=== PATIENT | female | born 1980 | race Caucasian/White ===

== ENCOUNTER → 2022-07-08 12:10 | Outpatient (CLI) | payer OTHER, SELFPAY ==
--- NOTE | ~2022-07-08 | MM_ITS ---
EXAMINATION: MM screening maral BI w nicolas HISTORY: Screening TECHNIQUE: Craniocaudal and mediolateral oblique 3-D tomosynthesis images were obtained and synthetic 2-D images were generated. CAD analysis was submitted and interpreted. COMPARISON: No prior mammogram is available for comparison at this institution. BREAST PARENCHYMAL COMPOSITION: The breasts are heterogeneously dense, which may obscure small masses FINDINGS: There are focal asymmetries in the upper outer quadrant of the right breast. No suspicious masses, calcifications or architectural distortion in the left breast to suggest malignancy. IMPRESSION: 1. Right breast asymmetries, upper outer quadrant. 2. Additional mammographic views and possible breast ultrasound are recommended. BI-RADS Category 0: Incomplete: Needs additional imaging evaluation. Reviewed, dictated and finalized at location A. IMPRESSION: 1. Right breast asymmetries, upper outer quadrant. 2. Additional mammographic views and possible breast ultrasound are recommended . BI-RADS Category 0: Incomplete: Needs additional imaging evaluation.
== END ==
PROVIDERS: PCP Emergency Medicine; Visit Provider Obstetrics & Gynecology Gynecology
DX: Z12.31 Encounter for screening mammogram for malignant neoplasm of breast (principal); R92.8 Other abnormal and inconclusive findings on diagnostic imaging of breast
CPT/HCPCS: 77063; 77067

== ENCOUNTER → 2022-08-05 09:24 | Outpatient (CLI) | payer OTHER, SELFPAY ==
--- NOTE | ~2022-08-05 | MMUS_ITS ---
EXAMINATION: MM diagnostic maral RT w nicolas, US breast RT limited HISTORY: Upper outer quadrant right breast mammographic asymmetries reported on 07/08/2022 screening m ammogram TECHNIQUE: Additional 3-D tomosynthesis images of the right breast were performed and synthetic 2-D i mages were generated. CAD analysis was submitted and interpreted. High resolution upper outer quadran t and lower outer quadrant right breast ultrasound was performed. COMPARISON: 07/08/2021 bilateral screening mammogram FINDINGS: MAMMOGRAPHIC FINDINGS: There are scattered benign microcalcifications. No suspicious mass is evident, but masses may be obsc ured by the heterogeneously dense fibroglandular stroma. ULTRASOUND: Real-time imaging of the upper outer and lower-outer quadrants of the right breast were performed 8:00 7 cm from nipple: 3.4 x 4.7 x 3.8 mm cyst 9:00 8 cm from nipple: Mildly irregular incompletely circumscribed hypoechoic mass is noted posterior ly, with posterior shadowing. No internal vascularity is evident. Ultrasound-guided biopsy is recomme nded. No other suspicious mass or shadowing of the lateral half of the right breast is noted. IMPRESSION: 1. Incompletely circumscribed mildly irregular hypoechoic lesion with posterior shadowing at 9:00 8 c m from nipple 2. Ultrasound-guided biopsy of right breast 9:00 lesion is recommended BI-RADS category 4, suspicious findings. Dr. Abebe telephoned the report and ultrasound-guided biopsy recommendation of right breast 9:00 lesio n on 07/28/2022 at 1045 hours to Nurse Leanne. Reviewed, dictated and finalized at location A. IMPRESSION: 1. Incompletely circumscribed mildly irregular hypoechoic lesion with posterior shadowing at 9:00 8 cm from nipple 2. Ultrasound-guided biopsy of right breast 9:00 lesion is recommended BI-RADS category 4, suspicious findings. Dr. Abebe telephoned the report and ultrasound-guided biopsy recommendation of r ight breast 9:00 lesion on 07/28/2022 at 1045 hours to Nurse Leanne.
== END ==
PROVIDERS: PCP Emergency Medicine; Visit Provider Obstetrics & Gynecology Gynecology
DX: R92.8 Other abnormal and inconclusive findings on diagnostic imaging of breast (principal); N64.89 Other specified disorders of breast
CPT/HCPCS: 76642; 77061; 77065; G0279